=== PATIENT | male | born 1990 | race Asian ===

== ENCOUNTER 2020-11-15 18:22 | Emergency (ER) | payer OTHER ==
[~2020-11-15] VITALS: Ht 162.6 cm; Wt 65.8 kg
[2020-11-15 18:28] VITALS: BP_SYST 101
[2020-11-15] MEDS ORDERED: KETAMINE 30 MG/3 ML SYRINGE IVP ONE (18:45)
[2020-11-15] MEDS ORDERED: MIDAZOLAM HCL 5 MG/5 ML VIAL IVP ONE (18:45)
[2020-11-15] MEDS ORDERED: NS 500 ML IV ONE (18:45)
[2020-11-15 21:02] VITALS: BP_SYST 108
== END 2020-11-15 21:00 | disposition home or self-care (01) ==
LOC: SED 18:22
DX: S43.085A Other dislocation of left shoulder joint, initial encounter (principal); X50.3XXA Overexertion from repetitive movements, initial encounter; Y93.B2 Activity, push-ups, pull-ups, sit-ups; Y92.89 Other specified places as the place of occurrence of the external cause; Y99.8 Other external cause status
CPT/HCPCS: 23650; 73030; 99152; 99285; J7040